=== PATIENT | female | born 1980 | race Caucasian/White ===

== ENCOUNTER 2018-01-28 12:56 | Emergency (ER) | payer BC ==
[~2018-01-28] VITALS: Ht 175.3 cm; Wt 130.5 kg
[2018-01-28] MEDS ORDERED: VITAMIN D50000 UNIT PO (13:24)
[2018-01-28] MEDS ORDERED: NIFEDIPINE ER90 M2 PO (13:24)
[2018-01-28] MEDS ORDERED: PRENATAL FORMU1 EAC2 PO (13:25)
[2018-01-28] MEDS ORDERED: TIROSINT125 MC1 PO (13:25)
[2018-01-28] MEDS ORDERED: GLUCOPHAGE1000 MG PO (13:25)
[2018-01-28 14:12] LABS: EOS % 0.3 % (1.0-5.0); HEMATOCRIT 32.7 % (37.0-47.0); HEMOGLOBIN 10.8 g/dL (12.5-16.0); LYMPH# 1.1 (1.50-4.00); MEAN CELL VOLUME 84 fl (78-100); MEAN CORPUSCULAR HEMOGLOBIN 28 pg (27-31); MEAN CORPUSCULAR HGB CONC 33 g/dL (33-37); MEAN PLATELET VOLUME 8.4 fl (7.4-10.4); MONO # 0.8 (0.20-0.80); NEU # 5.4 (1.40-6.50); PLATELET COUNT 396 K/mm3 (130-400); RED BLOOD COUNT 3.88 M/mm3 (4.10-5.30); RED CELL DISTRIBUTION WIDTH 15.2 % (11.5-14.5); WHITE BLOOD COUNT 7.3 K/mm3 (4.8-10.8)
[2018-01-28 14:21] LABS: URINE APPEARANCE HAZY; URINE BILIRUBIN NEGATIVE (NEGATIVE); URINE COLOR YELLOW; URINE GLUCOSE NEGATIVE (NEGATIVE); URINE KETONE NEGATIVE (NEGATIVE); URINE PROTEIN(semi-quant) 3+ mg/dL (NEGATIVE); URINE UROBILINOGEN NORMAL (NORMAL)
[2018-01-28 14:22] LABS: URINE BLOOD TRACE (NEGATIVE); URINE LEUKOCYTE ESTERASE TRACE (NEGATIVE); URINE NITRATE NEGATIVE (NEGATIVE)
[2018-01-28 14:24] LABS: ALBUMIN 3.5 g/dL (3.5-5.0); POTASSIUM 3.5 mmol/L (3.6-5.0); TOTAL BILIRUBIN 1.2 mg/dL (0.2-1.3); TOTAL PROTEIN 6.9 g/dL (6.3-8.2)
[2018-01-28] MEDS ORDERED: MACROBID 100 M100 MG PO (15:14)
[2018-01-28 15:31] VITALS: BP 147/99
== END 2018-01-28 15:31 | disposition home or self-care (01) ==
LOC: ED 12:56
PROVIDERS: Family Medicine
DX: O86.4 Pyrexia of unknown origin following delivery (principal); O86.20 Urinary tract infection following delivery, unspecified; O24.93 Unspecified diabetes mellitus in the puerperium; O16.5 Unspecified maternal hypertension, complicating the puerperium; Z79.84 Long term (current) use of oral hypoglycemic drugs; Z79.899 Other long term (current) drug therapy

== ENCOUNTER → 2022-02-03 | Outpatient (CLI) | payer BC ==
[~2022-02-03] MED LIST: GLUCOPHAGE1000 MG PO; MACROBID 100 M100 MG PO; NIFEDIPINE ER90 M2 PO; PRENATAL FORMU1 EAC2 PO; TIROSINT125 MC1 PO; VITAMIN D50000 UNIT PO
== END ==
LOC: MAMMO 11:36
DX: N64.9 Disorder of breast, unspecified (principal)